=== PATIENT | female | born 2000 | race Caucasian/White ===

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

== ENCOUNTER 2022-06-26 06:03 | Observation (INO) | payer OTHER ==
[~2022-06-26] VITALS: Ht 149.9 cm; Wt 79.4 kg
[2022-06-26] MEDS ORDERED: PREN1TAB78 PO (07:00)
== END 2022-06-26 08:45 | disposition home or self-care (01) ==
LOC: 8 EST LDRP 06:03
PROVIDERS: ADMIT Obstetrics & Gynecology; ATTEND Obstetrics & Gynecology
DX: O62.9 Abnormality of forces of labor, unspecified (principal); O36.8330 Maternal care for abnormalities of the fetal heart rate or rhythm, third trimester, not applicable or unspecified; O32.9XX0 Maternal care for malpresentation of fetus, unspecified, not applicable or unspecified; Z3A.39 39 weeks gestation of pregnancy
CPT/HCPCS: 59025; 76805; 76817; 76818; G0378; 99281